=== PATIENT | female | born 1935 | race Caucasian/White ===

== ENCOUNTER 2019-08-28 16:14 | Emergency (ER) | payer MEDICARE, SELFPAY ==
--- NOTE | 2019-08-28 16:29 | ED.GENADULT ---
HPI - General Adult General Chief complaint: Skin/Abscess/Foreign Body Stated complaint: injury Time Seen by Provider: 08/28/19 16:38 Source: patient, family and RN notes reviewed Mode of arrival: wheelchair Limitations: no limitations History of Present Illness HPI narrative: This is a 84 years old female presents to the office for an evaluation of left arm injury nights ago. She accidentally hit a door and tore her skin. Her cut it off part of the torn skin because he thought it was anyway. Then, he dressed it with gauze and co-band; however it continued to bleed which prompted her to come here. Denies dizziness or lightheaded prior to injury. She is not on any blood thinner. She has very bad rheumatoid arthritis, and wheelchair-bound. TD is up to date. Related Data Home Medications Medication Instructions Recorded Confirmed amlodipine [Norvasc] 2.5 mg PO DAILY 08/28/19 08/28/19 baclofen 10 mg PO BID 08/28/19 08/28/19 duloxetine [Cymbalta] 30 mg PO DAILY 08/28/19 08/28/19 gabapentin [Neurontin] 400 mg PO TID 08/28/19 08/28/19 latanoprost [Xalatan] 1 drp OPHTHALMIC (EYE) DAILY 08/28/19 08/28/19 levothyroxine 75 mcg PO DAILY 08/28/19 08/28/19 Allergies Allergy/AdvReac Type Severity Reaction Status Date / Time codeine Allergy Unknown Unknown Verified 08/28/19 16:46 Penicillins Allergy Unknown Unknown Verified 08/28/19 16:46 Review of Systems Review of Systems: Narrative: CONSTITUTIONAL: Denies fever or chills CARDIOVASCULAR: Denies chest pain. Reports history of murmur RESPIRATORY: Denies dyspnea GASTROINTESTINAL: Denies abdominal pain, nausea, vomiting SKIN: Reports left arm skin tears MUSCULOSKELETAL: Reports right arm can't move really well due to RA. NEUROLOGIC: Denies lightheaded All other systems reviewed are negative, except as documented in HPI. [facility] Past Medical History Medical History (Updated 08/28/19 @ 17:21 by LULY Wen) Blind left eye Cataracts, both eyes HLD (hyperlipidemia) HTN (hypertension) Hx of aortic valve disorder HX: breast cancer Hypothyroidism Rheumatoid arthritis Sjogren's syndrome Surgical History Surgical History (Updated 08/28/19 @ 16:33 by LULY Wen) History of heart artery stent Hx of appendectomy Hx of cholecystectomy Hx of hysterectomy Hx of mastectomy right side Hx of umbilical hernia repair Family History Family History (Updated 08/28/19 @ 16:34 by LULY Wen) Sibling Cerebrovascular accident Carcinoma of colon Father Heart disease Social History Social History Gender identity (if verbalized by the patient): Female Comments At time of signature, I agree with nursing past medical, surgical, social and family history. There is no relevant family history pertinent to the presenting complaint. Exam Narrative: Exam Narrative: GENERAL: This is a well-nourished, well-developed patient, in no apparent distress. CARDIOVASCULAR: Regular rate and rhythm. Murmur noted without gallops, or rubs. RESPIRATORY: Clear to auscultation. Breath sounds equal bilaterally. No wheezes, rales, or rhonchi. SKIN: left posterior arm note skin avulsion ~10cm lenghth x 7cm width with active bleeding post undo dressing. NEURO: awake, alert, and oriented to person, place and time. There were no obvious focal neurologic abnormalities. Steady gait [place] Coma Scale Eye Opening: Spontaneous 4 [place] Coma Scale Motor: Obeys Commands 6 [place] Coma Scale Verbal: Oriented 5 Course Vital Signs Vital signs: Vital Signs Temperature 99.2 F 08/28/19 16:30 Pulse Rate 69 08/28/19 16:30 Respiratory Rate 18 08/28/19 16:30 Blood Pressure 147/82 H 08/28/19 16:30 Pulse Oximetry 100 08/28/19 16:30 Temperature 99.2 F 08/28/19 16:30 Pulse Rate 69 08/28/19 16:30 Respiratory Rate 18 08/28/19 16:30 Blood Pressure 147/82 H 08/28/19 16:30 Pulse Oximetry
[2019-08-28 16:30] VITALS: BP 147/82; PULSE 69; RESP 18; TEMP 37.3; O2SAT 100
== END 2019-08-28 17:25 | disposition home or self-care (01) ==
PROVIDERS: Emergency Provider Nurse Practitioner
DX: H26.9 Unspecified cataract (principal); E78.5 Hyperlipidemia, unspecified; I10 Essential (primary) hypertension; Z85.3 Personal history of malignant neoplasm of breast; E03.9 Hypothyroidism, unspecified; M06.9 Rheumatoid arthritis, unspecified; Z99.3 Dependence on wheelchair; M35.00 Sjogren syndrome, unspecified; Z95.5 Presence of coronary angioplasty implant and graft; Z90.11 Acquired absence of right breast and nipple; S41.102A Unspecified open wound of left upper arm, initial encounter
CPT/HCPCS: 12004; 99213; G0463